=== PATIENT | female | born 1955 | race Caucasian/White ===

== ENCOUNTER → 2018-04-30 | Outpatient (CLI) | payer MEDICAID ==
[~2018-04-30] MED LIST: DILAUDID 4MG TAB4 MG PO; NO HOME MEDICATIONS
== END ==
LOC: MHCPAIN 13:06
DX: G89.29 Other chronic pain (principal); M47.817 Spondylosis without myelopathy or radiculopathy, lumbosacral region; M54.16 Radiculopathy, lumbar region; M53.3 Sacrococcygeal disorders, not elsewhere classified
CPT/HCPCS: G0463